=== PATIENT | male | born 1990 | race Caucasian/White ===

== ENCOUNTER 2019-05-28 04:38 | Emergency (ER) | payer OTHER ==
--- NOTE | 2019-05-28 08:32 | Emergency Department Report ---
HPI - General Chief Complaint: Earache Time Seen by Provider: 05/28/19 08:11 - HPI HPI: 29-year-old male presents to the emergency department with a 2 day history of some right ear fullness, discharge and discomfort. He denies any fever. He says that he has developed a lymph node around the right ear. He has not taken anything for her symptoms prior to presentation. No primary care physician. No recent travel. Past medical history of eczema. ED Past Medical Hx - Past Medical History Previous Medical History?: Yes Additional medical history: ezcemia - Surgical History Past Surgical History?: No - Social History Smoking Status: Current Every Day Smoker Substance Use Type: None - Medications Home Medications: Home Medications Medication Instructions Recorded Confirmed Last Taken Type Neomy/Polymyx B/Hc (Otic) Soln 4 drops AD Q6H #1 bottle 05/28/19 Unknown Rx [Cortisporin (Otic) Soln] ED Review of Systems ROS: Stated complaint: HEARING LOSS RIGHT EAR Other details as noted in HPI Comment: All other systems reviewed and negative Constitutional: denies: chills, fever Eyes: denies: eye pain, vision change ENT: ear pain. denies: throat pain Respiratory: denies: cough, shortness of breath Skin: denies: rash, change in color Neurological: denies: headache, weakness Physical Exam - Physical Exam Physical Exam: GENERAL: The patient is well-developed well-nourished. HENT: Normocephalic. Atraumatic. Patient has moist mucous membranes. Normal appearing bilateral tympanic membrane. Normal left sided external ear canal. The right external ear canal is erythematous and swollen, down to about 50% patency. Oropharynx is clear. EYES: Extraocular motions are intact. NECK: Supple. Trachea is midline. CHEST/LUNGS: Clear to auscultation. There is no respiratory distress noted. HEART/CARDIOVASCULAR: Regular. There is no tachycardia. There is no murmur. ABDOMEN: There is no abdominal distention. SKIN: Skin is warm and dry. NEURO: The patient is awake, alert, and oriented. The patient is cooperative. The patient has no focal neurologic deficits. No slurred speech. MUSCULOSKELETAL: There is no tenderness or deformity. There is no evidence of acute injury. ED Medical Decision Making - Medical Decision Making Patient appears to have right otitis externa. No signs of otitis media. Vital signs stable including being afebrile. He'll be placed on Cortisporin otic and given a referral for primary care physicians for follow-up. He will return to the emergency Department with any worsening of his symptoms or any acute distress. - Differential Diagnosis otitis media, otitis externa, eustachian tube dysfunction, cerumen impactio Critical Care Time: No Critical care attestation.: If time is entered above; I have spent that time in minutes in the direct care of this critically ill patient, excluding procedure time. ED Disposition Clinical Impression: Otitis externa Qualifiers: Otitis externa type: unspecified type Chronicity: acute Laterality: right Qualified Code(s): H60.501 - Unspecified acute noninfective otitis externa, right ear Disposition: TO HOME OR SELFCARE Is pt being admited?: No Condition: Stable Instructions: Otitis Externa (ED) Additional Instructions: Please follow up with a primary care physician in the next few days. Return to the emergency Department with any worsening of your symptoms or any acute distress. Use the antibiotic eardrops as prescribed. Prescriptions: Neomy/Polymyx B/Hc (Otic) Soln [Cortisporin (Otic) Soln] 4 drops AD Q6H #1 bottle Referrals: ELOISA JULIAN MD [Staff Physician] - 3-5 Days [facility] [Outside] - 3-5 Days Forms: Work/School Release Form(ED) Time of Disposition: 08:32
[2019-05-28 08:37] VITALS: BP 151/81
== END 2019-05-28 08:39 | disposition home or self-care (01) ==
LOC: ED 04:38
DX: H60.501 Unspecified acute noninfective otitis externa, right ear (principal); F17.200 Nicotine dependence, unspecified, uncomplicated; L30.9 Dermatitis, unspecified; Z79.899 Other long term (current) drug therapy
CPT/HCPCS: 99282